=== PATIENT | female | born 1975 | race Hispanic/Latino ===

== ENCOUNTER 2016-07-22 20:45 | Emergency (ER) | payer SELFPAY ==
[2016-07-22] MEDS ORDERED: Promethazine HCl 25 MG/ML VIAL ONE (21:32)
[2016-07-22] MEDS ORDERED: Sodium Chloride 0.9% 1,000 ML ONE (21:32)
[2016-07-22 21:44] LABS: #Basophils 0.1 thou/uL (0.0-0.2); #Eosinphils 0.1 thou/uL (0.0-0.7); #Lymphocytes 2.6 thou/uL (1.20-3.40); #Monocytes 0.7 thou/uL (0.11-0.59); %Basophils 1.2 % (0.0-1.0); %Eosinophils 2.2 % (0.0-10.0); %Lymphocytes 47.7 % (21.0-51.0); %Monocytes 12.3 % (0.0-10.0); Hematocrit 42.5 % (36.0-47.0); Mean Platelet Volume 6.7 fL (7.4-10.4); Red Blood Cell (RBC) Count 4.58 mill/uL (4.20-5.40); White Blood Cell (WBC) Count 5.4 thou/uL (4.8-10.8)
[2016-07-22 21:59] LABS: ALT (SGPT) 14 U/L (0-55); AST (SGOT) 17 U/L (5-34); Alkaline Phosphatase 60 U/L (40-150); Anion Gap 11 mmol/L (10-20); BUN (Urea Nitrogen) 9 mg/dL (7.0-18.7); Bilirubin, Total 0.2 mg/dL (0.2-1.2); Calc. Creatinine Clearance 0 mL/min (70-130); Calcium 9.1 mg/dL (7.8-10.44); Carbon Dioxide 26 mmol/L (22-29); Chloride 108 mmol/L (98-107); Estimated GFR-MDRD 76; Globulin 2.7 g/dL (2.4-3.5); Protein, Total 6.6 g/dL (6.0-8.3)
[2016-07-22] MEDS ORDERED: Potassium Chloride 20 MEQ TAB ONE (22:27)
--- NOTE | 2016-07-22 23:02 | ERRECORD ---
[facility] EMERGENCY RECORD HPI ABDOMINAL PAIN (WedJul 23, 2016 00:10 SHAN) HISTORIAN: History provided by patient. QUALITY: Pain is dull in nature. SEVERITY: Maximum severity of symptoms mild, Currently symptoms are mild. ROS (WedJul 23, 2016 00:10 SHAN) CONSTITUTIONAL: Negative constitutional review of systems. EYES: Negative eye review of systems. ENT: Historian reports rhinorrhea, reports sore throat. CARDIOVASCULAR: Negative cardiovascular review of systems. RESPIRATORY: Historian reports cough. GI: Negative gastrointestinal review of systems. SKIN: Negative skin review of systems. NEUROLOGIC: Negative neurologic review of systems. ENDOCRINE: Negative endocrine review of systems. NOTES: All systems reviewed, negative except as described above. PAST MEDICAL HISTORY (:03 LEE) MEDICAL HISTORY: No past medical history. FEMALE SURGICAL HISTORY: Patient has no surgical history. PSYCHIATRIC HISTORY: Psychiatric history includes, anxiety, depression, history of suicidal ideations. SOCIAL HISTORY: Patient denies alcohol use, Patient denies drug use, Patient has no smoking history, Patient denies alcohol use, Patient denies drug use, Patient currently uses tobacco, smokes cigarettes, daily, Patient smokes 1/2 packs per day. FAMILY HISTORY: Family istory is not significant. KNOWN ALLERGIES No Known Allergies (Unconfirmed) No Known Drug Allergies CURRENT MEDICATIONS No recorded medications VITAL SIGNS (20:55 KASA) VITAL SIGNS: BP: 142/92 (Lying), Pulse: 82 (Regular), Resp: 18 (Non-Labored), Temp: 97.7 (Oral), Pain: 0, O2 sat: 100 on Room Air, Time: 07/22/2016 20:55. PHYSICAL EXAM (WedJul 23, 2016 00:10 [facility]) CONSTITUTIONAL: Patient afebrile, Pulse normal, Blood pressure normal, Respiratory rate normal, Normal pulse oximetry, Patient appears non toxic, Patient appears pain free, Patient alert and oriented to person, place and time. HEAD: Head exam included findings of head atraumatic, normocephalic. &a-1R&a+25V*p+0X*b5869H*c202B*c15G*c2P*p-0X&a-25V&a+1R Name: Yanira Naik : 1975 F40 MedRec: [id number] AcctNum: [id number] Prepared: WedJul 23, 2016 00:17 by Interface Page 1 of 3 pMD [facility] EMERGENCY RECORD EYES: Eye exam included findings of eyelids normal to inspection, Pupils equally round and reactive to light, Extraocular muscles intact. ENT: nasal congestion. NECK: Neck exam normal. RESPIRATORY CHEST: Mild ronchi. ABDOMEN FEMALE: Abdominal exam included findings of abdomen nontender, Bowel sounds normal. BACK: Back exam normal. UPPER EXTREMITY: Upper extremity exam included findings of inspection normal, Range of motion normal. NEURO: Neuro exam normal. SKIN: Skin exam normal. MEDICATION ADMINISTRATION SUMMARY Drug Name: potassium chloride oral, Dose Ordered: 2 tab(s), Route: Oral, Status: Given, Time: 22:29 07/22/2016, Drug Name: Phenergan injection, Dose Ordered: 12.5 mg, Route: IV Push, Status: Given, Time: 21:43 07/22/2016, Drug Name: Normal Saline, Dose Ordered: 1 L, Route: IV Fluid Infusion, Status: Given, Time: 21:30 07/22/2016, Detailed record available in Medication Service section. DOCTOR NOTES (WedJul 23, 2016 00:11 SHAN) TEXT: No evidence of acute abdomen; soft throughout. gastroenteritis appearance. PROBLEM LIST No recorded problems DIAGNOSIS (:32 SHAN) FINAL: PRIMARY: Acute Gastroenteritis - presumed infectious, ADDITIONAL: Anxiety. PRESCRIPTION Zofran ODT: TABLET,DISINTEGRATING : 4 mg : ORAL : Quantity: 1 Unit: tab(s) Route: ORAL Schedule: every 4 hours prn Dispense: 20 Unit: tab(s) May substitute. Refills: No Refills . (:29 SHAN) NOTES: if needed for nausea No Refills. (22:29 SHAN) Lomotil: TABLET : 2.5 mg-0.025 mg : ORAL : Quantity: 1 Unit: tab(s) Route: ORAL Schedule: See Notes Dispense: 20 Unit: tab(s) May substitute. Refills: No Refills POTENTIAL SEVERE INTERACTION: potassium chloride oral (potassium chloride). (22:30 SHAN) NOTES: 1 up to four times a day to take after a loose stool if needed &a-1R&a+25V*p+0X*y7161L*c202B*c15G*c2P*p-0X&a-25V&a+1R Name: Yanira Naik : 1975 F40 MedRec: [id number] AcctNum: [id number] Prepared: WedJul 23, 2016 00:17 by Interface Page 2 of 3 pMD [facility] EMERGENCY RECORD No Refills. (22:30 SHAN) Vistaril oral: CAPSULE : 100 mg : ORAL : Quantity: 1 Unit: cap(s) Route: ORAL Schedule: every 6 hours PRN Dispense: 20 Unit: cap(s) May substitute. Refills: No Refills . (22:31 SHAN) NOTES: if needed for anxiety No Refills. (22:31 SHAN) DISPOSITION PATIENT: Disposition Type: Discharge, Disposition: *Discharge Home. (22:32 SHAN) Patient left the department. (22:54 MBOS) Vega: TALON=BARBRA Maki, Cherry YANG=BARBRA Marin Lee MBOS=BARBRA Solis, Catalina EISENBERG=MD Hi Stanley &a-1R&a+25V*p+0X*i1241K*c202B*c15G*c2P*p-0X&a-25V&a+1R Name: Yanira Naik : 1975 2 MedRec: [id number] AcctNum: [id number] Prepared: WedJul 23, 2016 00:17 by Interface Page 3 of 3 pMD MTDD
--- NOTE | 2016-07-22 23:07 | PICIS ---
[facility] EMERGENCY RECORD TRIAGE (WedJul 22, 2016 20:57 KASA) TRIAGE NOTES: Diarrhea stool x4 yesterday, unable to urinate. stress. (WedJul 22, 2016 20:57 KASA) PATIENT: NAME: Yanira Naik, AGE: 40, GENDER: female, : Wed1975, TIME OF GREET: WedJul 22, 2016 20:46, PREFERRED LANGUAGE: Setswana, ETHNICITY: Not or , ECODE BILLING MAP: [facility], SSN: [id number], Zip Code: [address], KG WEIGHT: 73.94, PHONE: , , , PERSON ID: [id number], PCP: Isreal Gutierrez. (WedJul 22, 2016 20:57 KASA) COMPLAINT: STOMACH PAIN. (WedJul 22, 2016 20:57 KASA) ADMISSION: URGENCY: 4 Non Urgent, ADMISSION SOURCE: Home, TRANSPORT: CAR, BED: TRIAGE. (WedJul 22, 2016 20:57 KASA) IMMUNIZATIONS: Flu vaccine not up to date, Tetanus not up to date. (21:03 LEEW) LMP: Last menstrual period: 06/25/2016, , P: 3. (21:03 LEEW) PROVIDERS: TRIAGE NURSE: Cherry Maki RN. (WedJul 22, 2016 20:57 KASA) VITAL SIGNS: BP 142/92, (Lying), Pulse 82, (Regular), Resp 18, (Non-Labored), Temp 97.7, (Oral), Pain 0, O2 Sat 100, on Room Air, Time 07/22/2016 20:55. (20:55 KASA) KNOWN ALLERGIES No Known Allergies (Unconfirmed) No Known Drug Allergies CURRENT MEDICATIONS No recorded medications VITAL SIGNS (20:55 KASA) VITAL SIGNS: BP: 142/92 (Lying), Pulse: 82 (Regular), Resp: 18 (Non-Labored), Temp: 97.7 (Oral), Pain: 0, O2 sat: 100 on Room Air, Time: 07/22/2016 20:55. NURSING ASSESSMENT: ABDOMEN (21:37 LEEW) CONSTITUTIONAL: Complex assessment performed, Patient arrives ambulatory, Gait steady, History obtained from patient, Patient appears comfortable, Patient cooperative, Patient alert, Oriented to person, place and time, Skin warm, Skin dry, Skin normal in color, Patient has sun melchor dye on bilateral upper and lower extremities. ABDOMEN: Abdomen assessment findings include abdomen symmetrical, Abdomen soft, Associated with nausea, Associated with diarrhea, Patient reported having 4x episodes of diarrhea stools yesterday, none today. LMP: : 3, Para: 3, First day last menstrual period, Last period started on Jun 25, 2016. SAFETY: Side rails up, Cart/Stretcher in lowest position, Hospital ID band on. &a-1R&a+25V*p+0X*s1472G*c202B*c15G*c2P*p-0X&a-25V&a+1R Name: Yanira Naik : 1975 F40 MedRec: [id number] AcctNum: [id number] Prepared: Omaira Jul 23, 2016 00:24 by Interface Page 1 of 7 pMD [facility] EMERGENCY RECORD NURSING PROCEDURE: DISCHARGE NOTE (22:52 MBOS) DISCHARGE: Patient discharged to home, ambulating without assistance, family driving, accompanied by other family member, Summary of Care printed/ provided, Discharge instructions given to patient, Simple or moderate discharge teaching performed, Prescriptions given and instructions on side effects given, Above person(s) verbalized understanding of discharge instructions and follow-up care, Patient treated and evaluated by physician. NURSING PROCEDURE: IV PATIENT IDENITIFIER: Patient actively involved in identification process, Patient's identity verified by patient stating name, Patient's identity verified by hospital ID bracelet. (21:36 LEEW) IV SITE 1: IV therapy indicated for hydration, IV therapy indicated for medication administration, IV established, to the left antecubital, using a 20 gauge catheter, in three attempts, Flushed with normal saline (mls): 10, Labs drawn at time of placement, labeled in the presence of the patient and sent to lab, Notes: NS BOLUS 1L STARTED. (21:36 LEEW) FOLLOW-UP SITE 1: IV discontinued, due to patient being discharged, catheter intact. (22:52 MBOS) NURSING PROCEDURE: NURSE NOTES (22:30 MBOS) NURSES NOTES: Patient is improving, Patient in no apparent distress, Patient resting quietly. ORDER DETAILS Order Name: CBC with Differential, Status: Active, Time: 21:07 07/22/2016, User: ELGIN, - Ordered for: MD Hi Stanley, - Entered by: MD Hi Stanley - [facility] Jul 22, 2016 21:07, - Quantity: 1, Order Name: Comprehensive Metabolic Panel, Status: Active, Time: 21:07 07/22/2016, User: ELGIN, - Ordered for: MD Hi Stanley, - Entered by: MD Hi Stanley - [facility] Jul 22, 2016 21:07, - Quantity: 1, Order Name: SALINE LOCK, Status: Done, Time: 21:34 07/22/2016, User: ELIZABETH, - Ordered for: MD Hi Stanley, - Entered by: MD Hi Stanley - [facility] Jul 22, 2016 21:07, - Quantity: 1. MEDICATION ADMINISTRATION SUMMARY Drug Name: potassium chloride oral, Dose Ordered: 2 tab(s), Route: Oral, Status: Given, Time: 22:29 07/22/2016, Drug Name: Phenergan injection, Dose Ordered: 12.5 mg, Route: IV Push, Status: Given, Time: 21:43 07/22/2016, &a-1R&a+25V*p+0X*p3254P*c202B*c15G*c2P*p-0X&a-25V&a+1R Name: Yanira Naik : 1975 F40 MedRec: [id number] AcctNum: [id number] Prepared: Omaira Jul 23, 2016 00:24 by Interface Page 2 of 7 pMD [facility] EMERGENCY RECORD Drug Name: Normal Saline, Dose Ordered: 1 L, Route: IV Fluid Infusion, Status: Given, Time: 21:30 07/22/2016, Detailed record available in Medication Service section. MEDICATION SERVICE Normal Saline: Order: Normal Saline (0.9 % sodium chloride) - Dose: 1 L : IV Fluid Infusion Schedule: Bolus Ordered by: Varun Hi MD Entered by: Varun Hi MD WedJul 22, 2016 21:09 , Acknowledged by: Gary Barcenas RN WedJul 22, 2016 21:30 Documented as given by: Gary Barcenas RN WedJul 22, 2016 21:30 Patient, Medication, Dose, Route and Time verified prior to administration. Amount given: 1L, Awake and alert- acceptable, Catheter placement confirmed via flush prior to administration, IV site without signs or symptoms of infiltration during medication administration, No swelling during administration, No drainage during administration, IV flushed after administration, Correct patient, time, route, dose and medication confirmed prior to administration, Patient advised of actions and side-effects prior to administration, Allergies confirmed and medications reviewed prior to administration, Administered by GARY BARCENAS, Patient in position of comfort, Side rails up, Cart in lowest position, Family at bedside. : Follow Up : _IV SITE #1:_, IV fluid infusion discontinued, on WedJul 22, 2016 22:42, Total fluid hydration time IV site 1 1 hour, 15 minutes, ., Total amount infused: 1000ml, IV Line flushed after administration, Patient in position of comfort, Side rails up, Cart in lowest position. (22:51 MBOS) Phenergan injection: Order: Phenergan injection (promethazine HCl) - Dose: 12.5 mg : IV Push Schedule: Bolus Ordered by: Varun Hi MD Entered by: Varun Hi MD WedJul 22, 2016 21:08 , Acknowledged by: Gary Barcenas RN WedJul 22, 2016 21:31 Documented as given by: Gary Barcenas RN WedJul 22, 2016 21:43 Patient, Medication, Dose, Route and Time verified prior to administration. Amount given: 12.5mg, Amount wasted: 12.5 mg, IV SITE #1 added to existing IV Fluid, Type: NS, Amount of fluid remaininml, Awake and alert- acceptable, Catheter placement confirmed via flush prior to administration, IV site without signs or symptoms of infiltration during medication administration, No swelling during administration, No drainage during administration, IV flushed after administration, Correct patient, time, route, dose and medication confirmed prior to administration, Patient advised of actions and side-effects prior to administration, Allergies confirmed and medications reviewed prior to administration, Administered by GARY BARCENAS RN, Patient in position of comfort, Side rails up, Cart in lowest position. : Follow Up : _IV SITE #1:_, Medication infusion discontinued, &a-1R&a+25V*p+0X*q1855S*c202B*c15G*c2P*p-0X&a-25V&a+1R Name: Yanira Naik : 1975 F40 MedRec: [id number] AcctNum: [id number] Prepared: WedJul 23, 2016 00:24 by Interface Page 3 of 7 pMD [facility] EMERGENCY RECORD on WedJul 22, 2016 22:41, ., IV Line flushed after administration, Patient in position of comfort, Side rails up, Cart in lowest position. (22:51 MBOS) potassium chloride oral: Order: potassium chloride oral (potassium chloride) - Dose: 2 tab(s) : Oral Schedule: Now Ordered by: Varun Hi MD Entered by: Varun Hi MD WedJul 22, 2016 22:26 , Acknowledged by: Catalina Solis RN WedJul 22, 2016 22:27 Documented as given by: Catalina Solis RN WedJul 22, 2016 22:29 Patient, Medication, Dose, Route and Time verified prior to administration. Patient appears Awake and alert- acceptable, Correct patient, time, route, dose and medication confirmed prior to administration, Patient advised of actions and side-effects prior to administration, Allergies confirmed and medications reviewed prior to administration, Patient in position of comfort, Side rails up, Cart in lowest position. HPI ABDOMINAL PAIN (WedJul 23, 2016 00:10 SHAN) HISTORIAN: History provided by patient. QUALITY: Pain is dull in nature. SEVERITY: Maximum severity of symptoms mild, Currently symptoms are mild. ROS (WedJul 23, 2016 00:10 SHAN) CONSTITUTIONAL: Negative constitutional review of systems. EYES: Negative eye review of systems. ENT: Historian reports rhinorrhea, reports sore throat. CARDIOVASCULAR: Negative cardiovascular review of systems. RESPIRATORY: Historian reports cough. GI: Negative gastrointestinal review of systems. SKIN: Negative skin review of systems. NEUROLOGIC: Negative neurologic review of systems. ENDOCRINE: Negative endocrine review of systems. NOTES: All systems reviewed, negative except as described above. PAST MEDICAL HISTORY (21:03 LEE) MEDICAL HISTORY: No past medical history. FEMALE SURGICAL HISTORY: Patient has no surgical history. PSYCHIATRIC HISTORY: Psychiatric history includes, anxiety, depression, history of suicidal ideations. SOCIAL HISTORY: Patient denies alcohol use, Patient denies drug use, Patient has no smoking history, Patient denies alcohol use, Patient denies drug use, Patient currently uses tobacco, smokes cigarettes, daily, Patient smokes 1/2 packs per day. FAMILY HISTORY: Family istory is not significant. &a-1R&a+25V*p+0X*p2436V*c202B*c15G*c2P*p-0X&a-25V&a+1R Name: Yanira Naik : 1975 F40 MedRec: [id number] AcctNum: [id number] Prepared: WedJul 23, 2016 00:24 by Interface Page 4 of 7 pMD [facility] EMERGENCY RECORD PHYSICAL EXAM (WedJul 23, 2016 00:10 SHAN) CONSTITUTIONAL: Patient afebrile, Pulse normal, Blood pressure normal, Respiratory rate normal, Normal pulse oximetry, Patient appears non toxic, Patient appears pain free, Patient alert and oriented to person, place and time. HEAD: Head exam included findings of head atraumatic, normocephalic. EYES: Eye exam included findings of eyelids normal to inspection, Pupils equally round and reactive to light, Extraocular muscles intact. ENT: nasal congestion. NECK: Neck exam normal. RESPIRATORY CHEST: Mild ronchi. ABDOMEN FEMALE: Abdominal exam included findings of abdomen nontender, Bowel sounds normal. BACK: Back exam normal. UPPER EXTREMITY: Upper extremity exam included findings of inspection normal, Range of motion normal. NEURO: Neuro exam normal. SKIN: Skin exam normal. EVENTS TRANSFER: Triage to Emergency Triage. (20:57 KASA) Emergency Triage to Emergency Room *TR1. (21:03 MBOS) Removed from Emergency Emergency Room *TR1. (22:54 MBOS) DOCTOR NOTES (WedJul 23, 2016 00:11 SHAN) TEXT: No evidence of acute abdomen; soft throughout. gastroenteritis appearance. PROBLEM LIST No recorded problems DIAGNOSIS (22:32 SHAN) FINAL: PRIMARY: Acute Gastroenteritis - presumed infectious, ADDITIONAL: Anxiety. DISPOSITION PATIENT: Disposition Type: Discharge, Disposition: *Discharge Home. (22:32 SHAN) Patient left the department. (22:54 MBOS) INSTRUCTION (22:33 SHAN) DISCHARGE: GASTROENTERITIS, VIRAL (4Y-ADULT). SPECIAL: 1. nausea pill if needed 2. diarrhea pill if needed (see instructions on both) 3. rest; followup with regular provider in a few days if possible 4. nerve pill if needed 5. return if condition worsens. &a-1R&a+25V*p+0X*a9182Y*c202B*c15G*c2P*p-0X&a-25V&a+1R Name: Yanira Naik : 1975 F40 MedRec: [id number] AcctNum: [id number] Prepared: WedJul 23, 2016 00:24 by Interface Page 5 of 7 pMD [facility] EMERGENCY RECORD PRESCRIPTION Zofran ODT: TABLET,DISINTEGRATING : 4 mg : ORAL : Quantity: 1 Unit: tab(s) Route: ORAL Schedule: every 4 hours prn Dispense: 20 Unit: tab(s) May substitute. Refills: No Refills . (22:29 SHAN) NOTES: if needed for nausea No Refills. (22:29 SHAN) Lomotil: TABLET : 2.5 mg-0.025 mg : ORAL : Quantity: 1 Unit: tab(s) Route: ORAL Schedule: See Notes Dispense: 20 Unit: tab(s) May substitute. Refills: No Refills POTENTIAL SEVERE INTERACTION: potassium chloride oral (potassium chloride). (22:30 SHAN) NOTES: 1 up to four times a day to take after a loose stool if needed No Refills. (22:30 SHAN) Vistaril oral: CAPSULE : 100 mg : ORAL : Quantity: 1 Unit: cap(s) Route: ORAL Schedule: every 6 hours PRN Dispense: 20 Unit: cap(s) May substitute. Refills: No Refills . (22:31 SHAN) NOTES: if needed for anxiety No Refills. (22:31 SHAN) IMAGING (22:53 MBOS) *DISCHARGE INSTRUCTIONS RECEIPT: Image captured from scanner. Page 2 added. Image captured from scanner. *SUPPLY CHARGE SHEET: Image captured from scanner. ADMIN DIGITAL SIGNATURE: MD Hi Stanley. (22:34 [facility]) MD Hi Stanley. (WedJul 23, 2016 00:12 SHAN) RESULTS (22:25 SHAN) LABORATORY: CBC with Differential Collection DT: WedJul 22, 2016 21:35, White Blood Cell (WBC) Count 5.4 thou/uL, Range (4.8-10.8), Red Blood Cell (RBC) Count 4.58 mill/uL, Range (4.20-5.40), Hemoglobin 13.6 g/dL, Range (12.0-16.0), Hematocrit 42.5 %, Range (36.0-47.0), Mean Corpuscular Volume 92.8 fl, Range (81.0-99.0), Mean Corpuscular Hemoglobin 29.8 pg, Range (27.0-31.0), Mean Corpuscular HGB CONC 32.1 g/dL, Range (32.0-36.0), RBC Distribution Width 13.1 %, Range (11.5-14.5), Platelet Count 272 thou/uL, Range (130-400), *Mean Platelet Volume 6.7 - L fL, Range (7.4-10.4), *%Neutrophils 36.6 - L %, Range (42.0-75.0), %Lymphocytes 47.7 %, Range (21.0-51.0), *%Monocytes 12.3 - H %, Range (0.0-10.0), %Eosinophils 2.2 %, Range (0.0-10.0), *%Basophils 1.2 - H %, Range (0.0-1.0), &a-1R&a+25V*p+0X*x1520I*c202B*c15G*c2P*p-0X&a-25V&a+1R Name: Yanira Naik : 1975 F40 MedRec: [id number] AcctNum: [id number] Prepared: WedJul 23, 2016 00:24 by Interface Page 6 of 7 pMD [facility] - [facility] EMERGENCY RECORD #Neutrophils 2.0 thou/uL, Range (1.40-6.50), #Lymphocytes 2.6 thou/uL, Range (1.20-3.40), *#Monocytes 0.7 - H thou/uL, Range (0.11-0.59), #Eosinphils 0.1 thou/uL, Range (0.0-0.7), #Basophils 0.1 thou/uL, Range (0.0-0.2). Comprehensive Metabolic Panel Collection DT: WedJul 22, 2016 21:35, Sodium 142 mmol/L, Range (136-145), *Potassium 3.4 - L mmol/L, Range (3.5-5.1), *Chloride 108 - H mmol/L, Range (98-107), Carbon Dioxide 26 mmol/L, Range (22-29), Anion Gap 11 mmol/L, Range (10-20), BUN (Urea Nitrogen) 9 mg/dL, Range (7.0-18.7), Creatinine 0.82 mg/dL, Range (0.6-1.1), Estimated GFR-MDRD 76 , Reference Range for Estimated GFR: Greater than 90, mL/min/1.73 m2 NOTE: The MDRD equation has not been validated for use, with the elderly (over 70 years of age), women, patients with, serious comorbid condition or persons with extremes of body size, muscle, mass, or nutritional status. , Glucose 85 mg/dL, Range (70-105), Calcium 9.1 mg/dL, Range (7.8-10.44), Bilirubin, Total 0.2 mg/dL, Range (0.2-1.2), Protein, Total 6.6 g/dL, Range (6.0-8.3), NOTE: Plasma values are generally 0.3 to 0.5 g/dL higher than serum values, due to the presence of fibrinogen. , Albumin 3.9 g/dL, Range (3.5-5.0), Globulin 2.7 g/dL, Range (2.4-3.5), Alb/Glob Ratio 1.4 g/dL, Range (1.2-2.2), Alkaline Phosphatase 60 U/L, Range (40-150), AST (SGOT) 17 U/L, Range (5-34), ALT (SGPT) 14 U/L, Range (0-55). Vega: TALON=BARBRA Maki, Cherry YANG=BARBRA Barcenas, Gary JOHNSON=BARBRA Solis, Catalina EISENBERG=MD Kolton, Varun &a-1R&a+25V*p+0X*c8942Z*c202B*c15G*c2P*p-0X&a-25V&a+1R Name: Yanira Naik : 1975 F40 MedRec: [id number] AcctNum: [id number] Prepared: WedJul 23, 2016 00:24 by Interface Page 7 of 7 pMD MTDD
== END 2016-07-22 22:46 | disposition home or self-care (01) ==
LOC: NAV ERS 20:45
DX: K52.9 Noninfective gastroenteritis and colitis, unspecified (principal); F41.9 Anxiety disorder, unspecified; F32.9 Major depressive disorder, single episode, unspecified; F17.210 Nicotine dependence, cigarettes, uncomplicated
CPT/HCPCS: 80053; 85025; 96365; J2550; J7050

== ENCOUNTER 2016-08-17 22:01 | Emergency (ER) | payer SELFPAY ==
[2016-08-17 22:45] LABS: Blood, Urine Small (Negative); Glucose, Urine (Dipstick) Negative (Negative); Ketone, Urine Trace mg/dL (Negative); Nitrite Negative (Negative); Protein, Urine (Dipstick) Negative (Neg-Trace)
[2016-08-17 22:46] LABS: Bilirubin Negative (Negative)
[2016-08-17 22:48] LABS: Bacteria/HPF Rare-Few HPF (None Seen); Squamous Epithelial 0-3 HPF (0-3); WBC/HPF 0-3 HPF (0-3)
[2016-08-17] MEDS ORDERED: metroNIDAZOLE 500 MG TAB ONE (23:11)
== END 2016-08-17 23:18 | disposition home or self-care (01) ==
LOC: NAV ERS 22:01
DX: N76.0 Acute vaginitis (principal); F31.9 Bipolar disorder, unspecified; F41.9 Anxiety disorder, unspecified; F17.210 Nicotine dependence, cigarettes, uncomplicated; Z79.899 Other long term (current) drug therapy
CPT/HCPCS: 81003; 81015; 81025; 87491; 87591; 99284

== ENCOUNTER 2016-08-28 17:09 | Emergency (ER) | payer SELFPAY ==
[2016-08-28 17:31] LABS: Bilirubin Negative (Negative); Blood, Urine Trace (Negative); Glucose, Urine (Dipstick) Negative (Negative); Ketone, Urine Negative (Negative); Nitrite Positive (Negative); Protein, Urine (Dipstick) Negative (Neg-Trace)
[2016-08-28 17:38] LABS: Bacteria/HPF 2+ HPF (None Seen); RBC/HPF 0-3 HPF (0-3)
== END 2016-08-28 17:55 | disposition home or self-care (01) ==
LOC: NAV ERS 17:09
DX: E86.0 Dehydration (principal); N39.0 Urinary tract infection, site not specified; F31.9 Bipolar disorder, unspecified; F41.0 Panic disorder [episodic paroxysmal anxiety]; F17.210 Nicotine dependence, cigarettes, uncomplicated; Z79.899 Other long term (current) drug therapy
CPT/HCPCS: 81003; 81015; 99283